=== PATIENT | female | born 1970 | race Caucasian/White ===

== ENCOUNTER 2023-08-05 08:23 | Emergency (ER) | payer MEDICAID ==
[~2023-08-05] VITALS: Ht 167.6 cm; Wt 79.5 kg
[2023-08-05 08:28] VITALS: BP 136/79; PULSE 86; RESP 18; TEMP 98.6
[2023-08-05] MEDS ORDERED: METO50 PO (08:29)
[2023-08-05] MEDS ORDERED: CLOP75TA60 PO (08:29)
[2023-08-05] MEDS ORDERED: ATOR40TA28 PO (08:29)
[2023-08-05] MEDS ORDERED: CEPH-558 PO (08:39)
== END 2023-08-05 08:44 | disposition home or self-care (01) ==
LOC: EMS 08:30
DX: S00.31XA Abrasion of nose, initial encounter (principal); E78.00 Pure hypercholesterolemia, unspecified; I10 Essential (primary) hypertension; Z98.890 Other specified postprocedural states; Z88.2 Allergy status to sulfonamides; Z88.8 Allergy status to other drugs, medicaments and biological substances; X58.XXXA Exposure to other specified factors, initial encounter; Y93.89 Activity, other specified; Y92.89 Other specified places as the place of occurrence of the external cause; Y99.8 Other external cause status
CPT/HCPCS: 99283

== ENCOUNTER 2023-08-10 05:24 | Emergency (ER) | payer MEDICAID ==
[~2023-08-10] VITALS: Ht 165.1 cm; Wt 72.0 kg
[~2023-08-10 05:24] MED LIST: ATOR40TA28 PO; CEPH-558 PO; CLOP75TA60 PO; METO50 PO
[2023-08-10 05:27] VITALS: TEMP 97.8
[2023-08-10] MEDS ORDERED: CIDE300T3 PO (05:34)
[2023-08-10] MEDS ORDERED: CHOL25TA4 PO (05:34)
[2023-08-10] MEDS ORDERED: MULT-1203 PO (05:34)
[2023-08-10] MEDS: CEPHALEXIN MONOHYDRATE 500 MG CAPSULE PO ONE (06:58)
[2023-08-10] MEDS: CLINDAMYCIN HCL 150 MG CAPSULE PO ONE (06:58)
[2023-08-10] MEDS ORDERED: CLIN300C58 PO (07:08)
[2023-08-10] MEDS ORDERED: MUPI15CR12 TP (07:08)
[2023-08-10] MEDS ORDERED: CEPH-558 PO (07:08)
[2023-08-10 07:16] VITALS: BP 135/81; PULSE 75; RESP 16
[2023-08-10 09:21] LABS: GLUCOMETER DEV NAME(LOC) ERT.5; GLUCOSE,POINT OF CARE 93 MG/DL (70-110)
== END 2023-08-10 07:34 | disposition home or self-care (01) ==
LOC: EMS 05:25
DX: L01.00 Impetigo, unspecified (principal); E78.00 Pure hypercholesterolemia, unspecified; I10 Essential (primary) hypertension; Z98.890 Other specified postprocedural states; Z88.2 Allergy status to sulfonamides; Z88.8 Allergy status to other drugs, medicaments and biological substances
CPT/HCPCS: 82962; 99283

== ENCOUNTER 2024-04-09 22:26 | Emergency (ER) | payer MEDICAID ==
[~2024-04-09] VITALS: Ht 165.1 cm; Wt 74.1 kg
[~2024-04-09 22:26] MED LIST changes: +CHOL25TA4 PO; +CIDE300T3 PO; +CLIN300C58 PO; +MULT-1203 PO; +MUPI15CR12 TP
[2024-04-09 22:31] VITALS: TEMP 98
[2024-04-10] MEDS: PHENYLEPHRINE HCL 0.5% 15 ML NASAL SPRAY NASAL ONE (04:52)
[2024-04-10 05:35] VITALS: BP 118/85; PULSE 82; RESP 18; O2SAT 96
[2024-04-10] MEDS: ACETAMINOPHEN 325 MG TABLET PO ONE (05:40)
== END 2024-04-10 05:51 | disposition home or self-care (01) ==
LOC: EMS 22:26
DX: R04.0 Epistaxis (principal); I10 Essential (primary) hypertension; E78.00 Pure hypercholesterolemia, unspecified; Z88.1 Allergy status to other antibiotic agents; Z88.2 Allergy status to sulfonamides; Z79.02 Long term (current) use of antithrombotics/antiplatelets; Z90.89 Acquired absence of other organs; Z98.890 Other specified postprocedural states; Z79.899 Other long term (current) drug therapy
CPT/HCPCS: 30901; 99284; Z7502; Z7610